=== PATIENT | male | born 1990 | race Caucasian/White ===

== ENCOUNTER 2016-05-10 18:23 | Emergency (ER) | payer OTHER ==
[~2016-05-10] VITALS: Ht 167.6 cm; Wt 100.0 kg
[2016-05-10 18:44] VITALS: BP 136/91; PULSE 77; RESP 16; O2SAT 98
--- NOTE | 2016-05-10 22:12 | ED.REPORT ---
HPI-General Illness Date of Service May 10, 2016 ED Provider: Rogelio Parks MD The patient is a 25 year old male who presents to the emergency department complaining of a right hand laceration that occurred earlier today. The patient was working on a sink when his pocket knife slipped and cut his right pinky finger. He denies any other injuries or traumas. His tetanus is not up to date. He is not on any blood thinners. Nursing Notes Stated Complaint: CUT FINGER OPEN RT HAND Chief Complaint: Laceration Nursing Notes Reviewed: Yes Allergies: Coded Allergies: No Known Allergies (Unverified , 05/10/16) No Active Prescriptions or Reported Meds General Time Seen by MD: 20:50 Chief Complaint Other (right hand laceration) Hx Obtained From: Patient Arrived By: Walk-in Sudden in Onset?: Yes Onset Occurred: 1 - 4 hours ago Symptom Duration: Since onset Context: Occurred at: Home injury Location: : Hand right Quality: Painful Severity: Current: Moderate Severity: Maximum: Severe Recent Healthcare: No recent doctor visit, No recent hospitalization Similar Sx Previous: No Past Medical History Past Medical History None Family History Noncontributory Smoking History Unknown if Ever Smoker Social History Other Social History: Good social support, Local resident Ambulatory Status Independent Review of Systems +hand laceration Full Review of Systems Musculoskeletal: Reports: Extremity pain Complete sys rev & neg: except as marked. Physical Exam Vital Signs Vital Signs Date Time Temp Pulse Resp B/P Pulse Ox O2 Delivery O2 Flow Rate FiO2 05/10/16 23:26 69 18 132/86 97 Room Air 05/10/16 18:44 36.6 77 16 136/91 98 Room Air Initial VS: Reviewed Head / Eyes: Atraumatic, Normocephalic, PERRL ENT: Mucous membranes moist, Conjunctiva normal, No scleral icterus Neck: Supple, Non-tender, Full range of motion Respiratory: Breath sounds normal, Clear to auscultation, No respiratory distress Cardiovascular: Regular rate & rhythm, Heart sounds normal, Intact distal pulses Abdomen / GI: Soft, Non-tender, No guarding, No rebound, No distention Lymphatic: No lymphadenopathy Extremities: Vascular intact, Neuro intact, No swelling, No tenderness Skin: Warm, Dry, No cyanosis Neurologic: Alert, Oriented, Nonfocal Psychiatric: Mood/affect normal, Behavior normal, Normal thought content General/Constitutional: Awake, Alert, Cooperative Wrist / Hand: Neurologic intact, Vascular intact He has a 5 mm laceration about the ulnar aspect of his right little finger, just proximal to the PIP joint. No active bleeding. Laceration is minimally open and goes down into the subcutaneous tissue. There is no exposed ligamentous structures or evidence of neurovascular injury. Procedures Laceration Management Time: 23:13 Procedure Performed by: ED physician Consent / Setup / Site Prep: Consent from patient, Time-out performed, Hand hygiene observed Location of Wound: 5 mm laceration to right little finger Digital Block: No Wound Preparation: Normal saline Debridement: None Irrigation: Copious Foreign Body Explore / Removal: Explored for foreign body Undermining / Margins: Flaps aligned Repair Skin: Dermabond Post-Procedure / Complications: Dressing applied, No complications, Condition improved, Tolerated procedure well, Patient stable Re-Eval/Medical Decision Med Decision/Clinical Course Patient presents with superficial laceration as described above. Tetanus status updated. No evidence of neurovascular injury. Full flexion and extension of finger. No other associated injuries. Patient not on blood thinners. No foreign body was present. Wound copiously irrigated. Repaired with Dermabond as documented above. Clean dressings placed. Follow-up and return precautions were reviewed in detail patient verbalized understanding and agreement with the plan. He was discharged in good condition. Source of Hx: Old records Time of Eval: 22:27 Re-Evaluation/Progress Note: Discussed plan for discharge. All questions were addressed. Counseled Regarding: Diagnosis, Need for follow-up, When/why to return to ED Discharge & Departure Primary Impression: Laceration Additional Impression: Finger pain, right Disposition: Home Discharge Condition All VS Reviewed: Yes Condition: Stable Additional Instructions: Thank you for seeking care at the emergency room. Our primary goal today in the ED was to evaluate you for any life-threatening conditions. Your evaluation was reassuring. Keep the area clean and dry. You can take ibuprofen as needed for pain. You should return to the ED immediately if you develop increased redness, pain or swelling, any sign of infection, fevers, vomiting, or any other concerning signs or symptoms. Thank you for letting us partake in your care today. Referrals: [facility] (PCP) Scribe Attestation Portions of this note were transcribed by Maddi Jackman. I, Dr. Parks personally performed the history, physical exam and medical decision-making; I reviewed and confirmed the accuracy of the information in the transcribed note. Signed by: Brenden Gomez, 05/10/2016 and 2315. Rogelio Parks MD May 10, 2016 22:12 Maddi Jackman May 10, 2016 22:28
[2016-05-10] MEDS ORDERED: TdaP Vaccine 0.5 mL Inj IM ONE (22:15)
[2016-05-10 23:26] VITALS: BP 132/86; PULSE 69; RESP 18; O2SAT 97
== END 2016-05-10 23:27 | disposition home or self-care (01) ==
LOC: SED 18:44
DX: S61.216A Laceration without foreign body of right little finger without damage to nail, initial encounter (principal); W26.0XXA Contact with knife, initial encounter; Y93.89 Activity, other specified; Y92.9 Unspecified place or not applicable; Y99.8 Other external cause status; Z23 Encounter for immunization